=== PATIENT | male | born 1975 | race Caucasian/White ===

== ENCOUNTER 2023-04-24 05:50 | Emergency (ER) | payer MEDICAID ==
[~2023-04-24] VITALS: Ht 172.7 cm; Wt 68.2 kg
[2023-04-24 06:43] VITALS: BP 123/77
[2023-04-24 06:49] LABS: BASOPHILS % (AUTO) 0.4 % (0.0-2.0); EOSINOPHILS % (AUTO) 0.2 % (1.0-6.0); HEMATOCRIT 43.6 % (41-53); HEMOGLOBIN 14.6 g/dL (13.5-17.5); LYMPHOCYTES % (AUTO) 6.1 % (22.0-44.0); MEAN CORPUSCULAR HEMOGLOBIN 31.4 pg (26.0-34.0); MEAN CORPUSCULAR HGB CONC 33.5 G/dL (31.0-37.0); MEAN CORPUSCULAR VOLUME 94 fL (80-100); MONOCYTES % (AUTO) 12.7 % (2.0-9.0); NEUTROPHILS # (AUTO) 12.9 K/uL (1.8-7.7); NEUTROPHILS % (AUTO) 80.6 % (40.0-70.0); PLATELET COUNT (AUTO) 270 K/uL (150-450); RED BLOOD CELL COUNT(AUTO) 4.66 MIL/uL (4.50-5.90); RED CELL DISTRIBUTION WIDTH 13.1 % (11.5-14.5)
[2023-04-24 07:03] LABS: ANION GAP 11 mmol/L (8-16); CALCIUM, TOTAL 10.2 mg/dL (8.8-10.5); CARBON DIOXIDE 27 mmol/L (22-29); CHLORIDE 101 mmol/L (98-107); CREATININE 1.35 mg/dL (0.60-1.30); GLOMERULAR FILTR. RATE CALC 56 mL/min (>60); GLUCOSE,RANDOM 92 mg/dL (70-110); POTASSIUM 4.2 mmol/L (3.5-5.1); SODIUM SERUM 139 mmol/L (136-145)
[2023-04-24 07:04] LABS: ALANINE AMINOTRANSFERASE 54 U/L (12-78); ALKALINE PHOSPHATASE 80 U/L (46-116); ASPARTATE AMINOTRANSFERASE 93 U/L (15-37)
[2023-04-24 07:05] LABS: ALBUMIN 4.3 g/dL (3.4-5.0); TOTAL PROTEIN, SERUM 7.7 g/dL (6.4-8.2)
[2023-04-24] MEDS ORDERED: LORazepam 1 MG TABLET PO ONE (08:00)
== END 2023-04-24 09:40 | disposition home or self-care (01) ==
LOC: EMS 05:50
DX: F15.10 Other stimulant abuse, uncomplicated (principal); F17.210 Nicotine dependence, cigarettes, uncomplicated; F14.90 Cocaine use, unspecified, uncomplicated; Z98.890 Other specified postprocedural states
CPT/HCPCS: 99283; 80053; 85025; 36415; G0480

== ENCOUNTER 2025-06-23 05:09 | Inpatient (IN) | payer MEDICAID, OTHER ==
[~2025-06-23] VITALS: Ht 175.3 cm; Wt 83.9 kg
[2025-06-23 05:48] LABS: COVID AG,FIA SOURCE NASAL SWAB
[2025-06-23 05:50] LABS: PLATELET COUNT (AUTO) 277 K/uL (150-450); RED BLOOD CELL COUNT(AUTO) 4.42 MIL/uL (4.50-5.90); RED CELL DISTRIBUTION WIDTH 13.0 % (11.5-14.5); WHITE BLOOD COUNT (AUTO) 13.1 K/uL (4.5-11.0)
[2025-06-23 05:59] LABS: CALCIUM, TOTAL 9.8 mg/dL (8.8-10.5); CREATININE 1.27 mg/dL (0.60-1.30); GLOMERULAR FILTR. RATE CALC 60.0 mL/min (>60); GLUCOSE,RANDOM 78.0 mg/dL (70-110); SODIUM SERUM 143.0 mmol/L (136-145); UREA NITROGEN, BLOOD 24.0 mg/dL (7-18)
[2025-06-23 06:12] LABS: SARS-COV2 (COVID) ANTIGEN,FIA Negative (Negative)
[2025-06-23 07:40] LABS: APPEARANCE,URINE TURBID (CLEAR); GLUCOSE, URINE (UA) NEGATIVE (NEGATIVE); LEUKOCYTE ESTERASE ,URINE NEGATIVE (NEGATIVE); NITRATE,URINE NEGATIVE (NEGATIVE); OCCULT BLOOD,URINE NEGATIVE (NEGATIVE); PH,URINE DRUG SCREEN 5.5 (5.0-8.0); SPECIFIC GRAVITIY, URINE 1.019 (1.003-1.030)
[2025-06-23 07:46] LABS: ALCOHOL, URINE DRUG SCREEN NEGATIVE (NEGATIVE); AMPHET/METH SCREEN,URINE POSITIVE (NEGATIVE); BARBITURATE SCREEN, URINE NEGATIVE (NEGATIVE); CANNABINOID SCREEN,URINE NEGATIVE (NEGATIVE); COCAINE SCREEN,URINE NEGATIVE (NEGATIVE); METHADONE SCREEN, URINE NEGATIVE (NEGATIVE)
[2025-06-23] MEDS ORDERED: MAG HYDROX/ALUMINUM HYD/SIMETH ES 30 ML SUSPENSION UDCUP PO PRN (09:00)
[2025-06-23] MEDS ORDERED: GuaiFENesin/D-METHORPHAN [SUGAR-FREE] 200-20MG/10 ML SYRUP UDCUP PO PRN (09:00)
[2025-06-23] MEDS ORDERED: OLANZapine 5 MG RAPDIS TABLET PO PRN (09:00)
[2025-06-23] MEDS ORDERED: ACETAMINOPHEN 325 MG TABLET PO PRN (09:00)
[2025-06-23] MEDS ORDERED: ZOLPIDEM TARTRATE 10 MG TABLET PO PRN (09:00)
[2025-06-23] MEDS ORDERED: MAGNESIUM HYDROXIDE SUSPENSION 30 ML UDCUP PO PRN (09:00)
[2025-06-23] MEDS ORDERED: TUBERCULIN, PURIFIED PROTEIN DERIVATIVE 5 TU/0.1 ML SYRINGE ID ONE (09:00)
[2025-06-23] MEDS ORDERED: PROMETHAZINE HCL 25 MG TABLET PO PRN (09:00)
[2025-06-23] MEDS ORDERED: LOPERAMIDE HCL 2 MG CAPSULE PO PRN (09:00)
[2025-06-23] MEDS: DIVALPROEX SODIUM 500 MG ER TABLET PO SCH (10:10)
[2025-06-23 10:11] VITALS: O2SAT 97
[2025-06-23] MEDS: MULTIVITAMINS WITH MINERALS, THERAPEUTIC TABLET PO SCH (10:11)
[2025-06-23] MEDS: FOLIC ACID 1 MG TABLET PO SCH (10:11)
[2025-06-23] MEDS: NALTREXONE HCL 50 MG TABLET PO SCH (10:11)
[2025-06-23] MEDS: THIAMINE 100 MG TABLET PO SCH (10:11)
[2025-06-23] MEDS: LORazepam 2 MG/ML VIAL IM ONE (15:46)
[2025-06-23 18:22] VITALS: BP 114/72; PULSE 68; RESP 16; TEMP 97.7; O2SAT 97
[2025-06-23 20:13] VITALS: BP 114/72; PULSE 68; RESP 16; TEMP 97.7; O2SAT 97
[2025-06-23] MEDS: MELATONIN 5 MG TABLET PO SCH (20:40)
[2025-06-23] MEDS: OLANZapine 5 MG RAPDIS TABLET PO SCH (20:40)
[2025-06-24 08:05] VITALS: BP 122/84; PULSE 69; RESP 16; TEMP 98.3; O2SAT 100
[2025-06-24 09:11] LABS: CHOL/HDL RATIO 2.4 (4.2-7.3); LDL CHOL (CALC.) 71.0 mg/dL (0-130)
[2025-06-24 20:01] VITALS: BP 122/87; PULSE 79; RESP 17; TEMP 98.4; O2SAT 100
[2025-06-24 20:27] VITALS: BP 118/74; PULSE 79; RESP 17; TEMP 98.5; O2SAT 100
[2025-06-25 08:08] VITALS: BP 110/87; PULSE 65; RESP 16; TEMP 97.5; O2SAT 97
[2025-06-25 08:35] LABS: PLATELET COUNT (AUTO) 276 K/uL (150-450); RED BLOOD CELL COUNT(AUTO) 4.48 MIL/uL (4.50-5.90); RED CELL DISTRIBUTION WIDTH 13.1 % (11.5-14.5); WHITE BLOOD COUNT (AUTO) 5.9 K/uL (4.5-11.0)
[2025-06-25] MEDS ORDERED: PALIPERIDONE PALMITATE 234 MG/1.5 ML SYRINGE IM ONE (15:00)
[2025-06-25 20:07] VITALS: BP 115/80; PULSE 71; RESP 16; TEMP 97.4; O2SAT 100
[2025-06-26 08:11] VITALS: BP 112/68; PULSE 72; RESP 17; TEMP 97.1; O2SAT 95
[2025-06-26 20:28] VITALS: BP 122/95; PULSE 91; RESP 16; TEMP 97.5; O2SAT 96
[2025-06-26] MEDS: OLANZapine 10 MG RAPDIS TABLET PO SCH (21:00)
[2025-06-27 08:57] VITALS: BP 114/80; PULSE 79; RESP 17; TEMP 97.8; O2SAT 94
[2025-06-27 20:01] VITALS: BP 122/75; PULSE 65; RESP 16; TEMP 97.3; O2SAT 96
[2025-06-28 08:02] VITALS: BP 108/74; PULSE 82; RESP 18; TEMP 97.5; O2SAT 98
[2025-06-28 20:04] VITALS: BP 113/73; PULSE 80; RESP 16; TEMP 97.5; O2SAT 97
[2025-06-29 08:21] VITALS: BP 110/92; PULSE 91; RESP 17; TEMP 97.8; O2SAT 97
[2025-06-29] MEDS ORDERED: PALIPERIDONE PALMITATE 156 MG/ML SYRINGE IM ONE (09:00)
[2025-06-29 20:04] VITALS: BP 103/75; PULSE 81; RESP 17; TEMP 97.5
[2025-06-30 08:49] VITALS: BP 107/60; PULSE 67; RESP 17; TEMP 97.9; O2SAT 96
[2025-06-30] MEDS ORDERED: NALT50TA33 PO (15:11)
[2025-06-30] MEDS ORDERED: MELA5TAB40 PO (15:11)
[2025-06-30] MEDS ORDERED: OLAN10TA26 PO (15:11)
== END 2025-06-30 16:49 | disposition home or self-care (01) | DRG 750 ==
LOC: EMS 05:15 → B3A 15:56
PROVIDERS: ADMIT Psychiatry & Neurology Psychiatry; ATTEND Psychiatry & Neurology Psychiatry
PROC: GZHZZZZ Group Psychotherapy (ICD-10-PCS; principal; 2025-06-23)
PROC: GZ58ZZZ Individual Psychotherapy, Cognitive-Behavioral (ICD-10-PCS; 2025-06-23)
PROC: GZ56ZZZ Individual Psychotherapy, Supportive (ICD-10-PCS; 2025-06-23)
DX: F25.9 Schizoaffective disorder, unspecified (principal); R45.851 Suicidal ideations; Z60.8 Other problems related to social environment; F14.90 Cocaine use, unspecified, uncomplicated; F19.20 Other psychoactive substance dependence, uncomplicated; Z20.822 Contact with and (suspected) exposure to COVID-19; F17.200 Nicotine dependence, unspecified, uncomplicated; Z59.00 Homelessness unspecified; Z65.3 Problems related to other legal circumstances; Z87.828 Personal history of other (healed) physical injury and trauma; Z63.9 Problem related to primary support group, unspecified; Z91.199 Patient's noncompliance with other medical treatment and regimen due to unspecified reason; Z55.9 Problems related to education and literacy, unspecified
CPT/HCPCS: 80048; 80061; 80164; 80307; 81003; 83036; 84439; 84443; 85025; 86592; 96372; 99291; G0480

== ENCOUNTER 2025-06-27 15:50 | Emergency (ER) | payer MEDICAID, OTHER ==
[~2025-06-27] VITALS: Ht 172.7 cm; Wt 68.2 kg
[2025-06-27 16:22] VITALS: TEMP 97.9
[2025-06-27 16:39] LABS: PLATELET COUNT (AUTO) 240 K/uL (150-450); RED BLOOD CELL COUNT(AUTO) 4.84 MIL/uL (4.50-5.90); RED CELL DISTRIBUTION WIDTH 13.4 % (11.5-14.5); WHITE BLOOD COUNT (AUTO) 4.7 K/uL (4.5-11.0)
[2025-06-27 16:47] LABS: CALCIUM, TOTAL 9.4 mg/dL (8.8-10.5); CREATININE 0.94 mg/dL (0.60-1.30); GLOMERULAR FILTR. RATE CALC > 60 mL/min (>60); GLUCOSE,RANDOM 119 mg/dL (70-110); SODIUM SERUM 137 mmol/L (136-145); UREA NITROGEN, BLOOD 16 mg/dL (7-18)
[2025-06-27 17:50] VITALS: BP 132/79; PULSE 78; RESP 17; O2SAT 98
== END 2025-06-27 18:30 | disposition home or self-care (01) ==
LOC: EMS 15:50
DX: F25.9 Schizoaffective disorder, unspecified (principal); F14.90 Cocaine use, unspecified, uncomplicated; F15.90 Other stimulant use, unspecified, uncomplicated; F17.210 Nicotine dependence, cigarettes, uncomplicated; Z98.890 Other specified postprocedural states
CPT/HCPCS: 80048; 80164; 85025; 93005; 99285